=== PATIENT | female | born 1980 | race Two or more races ===

== ENCOUNTER 2025-01-07 04:39 | Emergency (ER) | payer OTHER ==
[~2025-01-07] VITALS: Ht 162.6 cm; Wt 90.7 kg
[2025-01-07] MEDS ORDERED: MORPHINE SULFATE 4 MG/ML VIAL IV STA (04:57)
[2025-01-07] MEDS ORDERED: FAMOTIDINE/PF 20 MG/2 ML VIAL IV PUSH STA (04:58)
[2025-01-07] MEDS ORDERED: PROMETHAZINE HCL 50 MG/ML AMPUL IM STA (04:58)
[2025-01-07] MEDS ORDERED: RINGERS SOLUTION,LACTATED 1,000 ML IV ONE (05:00)
[2025-01-07 05:39] LABS: BASO % 0.7 % (0.1-1.2); EOS # 0.23 (0.04-0.54); EOS % 2.8 % (0.7-7.0); LYMPH # 3.02 (1.18-3.74); LYMPH % 36.9 % (19.3-53.1); MEAN PLATELET VOLUME 10.80 fl (9.4-12.4); MONO # 0.76 (0.24-0.82); MONO % 9.3 % (4.7-12.5); NEUT # 4.10 (1.56-6.13); NEUT % 50.1 % (34.0-71.1); RED CELL DISTRIBUTION WIDTH 18.3 % (11.6-14.4)
[2025-01-07 05:57] LABS: INR 1.01
[2025-01-07 06:04] LABS: ALT/SGPT 25 U/L (12-78); AST/SGOT 13 U/L (15-37); BILIRUBIN TOTAL 0.41 mg/dL (0.3-1.2); BILIRUBIN,CONJUGATED < 0.10 mg/dL (0.0-0.2); BUN CREA RATIO 13 (7.0-25.0); CREATININE SERUM 0.84 mg/dL (0.55-1.02); GFR 74.35; GLOBULINA 4.0 G/DL (2.4-3.5); GLUCOSE FASTING 129 mg/dL (65-100); OSMOLALITY SERUM 282 MOSM/KG (275-295)
[2025-01-07] MEDS ORDERED: ONDANSETRON HCL 2 MG/ML VIAL IV STA (06:42)
[2025-01-07] MEDS ORDERED: POTASSIUM CHLORIDE IN 0.9%NACL 40 MEQ/1,000 ML PIGGYBAG IV ONE (08:30)
[2025-01-07] MEDS ORDERED: METOCLOPRAMIDE HCL 5 MG/ML VIAL IV ONE (08:45)
[2025-01-07] MEDS ORDERED: ORPHENADRINE CITRATE 30 MG/ML AMPUL IV ONE (10:30)
[2025-01-07] MEDS ORDERED: ENALAPRILAT DIHYDRATE 1.25 MG/ML VIAL IV ONE (10:45)
[2025-01-07] MEDS ORDERED: DIPHENHYDRAMINE HCL 50 MG/ML VIAL 1ML IV ONE (13:30)
[2025-01-07] MEDS ORDERED: METHYLPREDNISOLONE SOD SUCC 125 MG VIAL IV ONE (13:30)
[2025-01-07] MEDS ORDERED: ONDANSETRON HCL 2 MG/ML VIAL IV ONE (15:45)
[2025-01-07] MEDS ORDERED: MEPERIDINE HCL/PF 50 MG/ML VIAL IM ONE (16:15)
[2025-01-07] MEDS ORDERED: LORazepam 2 MG/ML VIAL IM ONE (16:45)
[2025-01-07 17:23] LABS: ALT/SGPT 26.0 U/L (12-78); AST/SGOT 15.0 U/L (15-37); BILIRUBIN TOTAL 0.48 mg/dL (0.3-1.2); BUN CREA RATIO 10.0 (7.0-25.0); CREATININE SERUM 0.96 mg/dL (0.55-1.02); GFR 63.74; GLOBULINA 3.9 G/DL (2.4-3.5); GLUCOSE FASTING 161.0 mg/dL (65-100); OSMOLALITY SERUM 282.0 MOSM/KG (275-295)
[2025-01-07] MEDS ORDERED: CARAFATE1 GM PO (18:04)
[2025-01-07] MEDS ORDERED: PROTONIX40 MG PO (18:04)
== END 2025-01-07 18:13 | disposition home or self-care (01) ==
LOC: ER 06:19
PROVIDERS: General Practice
DX: K80.20 Calculus of gallbladder without cholecystitis without obstruction (principal); R10.13 Epigastric pain; R11.10 Vomiting, unspecified; Z88.0 Allergy status to penicillin; Z88.6 Allergy status to analgesic agent